=== PATIENT | female | born 1975 | race Caucasian/White ===

== ENCOUNTER 2016-10-22 23:32 | Inpatient (IN) | payer OTHER ==
--- NOTE | ~2016-10-22 | PN ---
Unit #: [id number] #: [id number] Patient: NAVEEN ASH [id number] [facility] [address] [place] [address] [id number] MR#: [id number] NAME: NAVEEN ASH. ROOM: 16 Age: 41 Sex: F Admission Date: 10/22/2016 : 1975 Attending Physician: Silvano Farrell M.D. Admitting Physician: Alberto Raya PROGRESS NOTES DATE 10/26/2016 DISCUSSION The patient looks significantly improved during today's interview. She is more future oriented and less disorganized in her thinking. She is expressing interest in either return to [facility] or participation in the transitions program. Dictated by... Silvano Farrell M.D. CB/leigh TD: 10/26/2016 16:36 JOB #: [id number] RACHEL PROGRESS NOTES X Silvano Farrell MD X PROGRESS NOTE
--- NOTE | ~2016-10-22 | CO ---
Unit #: [id number] #: [id number] Patient: YORDAN ASH [id number] [place] [address] [id number] MR#: [id number] NAME: YORDAN ASH. ROOM: 16 Age: 41 Sex: F Admission Date: 10/22/2016 : 1975 Attending Physician: Silvano Farrell M.D. Consultation Date: 10/23/2016 CONSULTATION REPORT SUBJECTIVE Yordan is a 41-year-old, who was noted to have a scabs along her forehead extending into the hairline at the time of admission. She was examined and this was described and treatment was outlined in her admission H and P. Please see H and P dated 10/23/2016. Dictated by... Racquel Nelson P.A.-C. for Alberto Ledesma/coco TD: 10/26/2016 02:48 JOB #: [id number] CONSULTATION REPORT X Racquel Nelson CONSULTATION REPORT
--- NOTE | ~2016-10-22 | DS ---
Unit #: [id number] #: [id number] Patient: NAVEEN ASH [id number] [facility] [address] [place] [address] [id number] MR#: [id number] NAME: NAVEEN ASH. ROOM: [facility] Age: 41 Sex: F Admission Date: 10/22/2016 : 1975 Discharge Date: 10/28/2016 Attending Physician: Silvano Farrell M.D. DISCHARGE SUMMARY JOB NOTE: VERIFY MRN NUMBER REASON FOR ADMISSION The patient is a 31-year-old chronically ill white female, admitted with recurrent psychosis after a period of medication noncompliance. HOSPITAL COURSE The patient was admitted to the [address] [place] [address] unit and placed on suicide precautions. She was restarted on previously prescribed medications and was provided with an injection of Invega Sustenna during her stay in the hospital. She showed rapid and significant improvement with re-initiation of medications, and by 10/28/2016 was in bright spirits. She was agreeable with plan for discharge with followup to take place through the auspices of the intensive outpatient program and community mental health resources. Discharge was ordered. FINAL DIAGNOSIS Schizoaffective disorder. DISPOSITION ON DISCHARGE The patient is discharged on the following medications; Zoloft 150 mg daily for depression, Neurontin 300 mg b.i.d. and 600 mg at h.s. for psychosis, Depakote 500 mg q.a.m. and 1000 mg at h.s. for mood stabilization, Invega Sustenna 234 mg q.4 weeks, Neosporin apply to scalp b.i.d. for infection, Vistaril 50 mg at bedtime p.r.n. insomnia. DISCHARGE INSTRUCTIONS No dietary or physical restrictions were placed upon the patient at the time of discharge. FOLLOWUP Followup will take place through the auspices of community mental health resources and the transitions intensive outpatient program provided by this facility. PROGNOSIS The patient's prognosis is considered fair. Dictated by... Silvano Farrell M.D. CB/terrelll Unit #: [id number] #: [id number] Patient: NAVEEN ASH TD: 10/29/2016 02:09 JOB #: [id number] DISCHARGE SUMMARY X Silvano Farrell MD DISCHARGE SUMMARY
--- NOTE | ~2016-10-22 | PN ---
Unit #: [id number] #: [id number] Patient: NAVEEN ASH [id number] [facility] [address] [place] [address] [id number] MR#: [id number] NAME: NAVEEN ASH. ROOM: 16 Age: 41 Sex: F Admission Date: 10/22/2016 : 1975 Attending Physician: Silvano Farrell M.D. Admitting Physician: Alberto Raya PROGRESS NOTES DATE 10/27/2016 DISCUSSION The patient seems to be sustaining improvement. She is pleasant and cooperative in her actions with this physician today and states that she plans to return to her apartment. She would be a good candidate for the transitions program upon discharge which should take place tomorrow. Dictated by... Silvano Farrell M.D. CB/caitlin TD: 10/27/2016 21:06 JOB #: [id number] RACHEL PROGRESS NOTES X Silvano Farrell MD PROGRESS NOTE
--- NOTE | ~2016-10-22 | PN ---
Unit #: [id number] #: [id number] Patient: NAVEEN ASH [id number] [facility] [address] [place] [address] [id number] MR#: [id number] NAME: NAVEEN ASH. ROOM: 16 Age: 41 Sex: F Admission Date: 10/22/2016 : 1975 Attending Physician: Silvano Farrell M.D. Admitting Physician: Alberto Raya PROGRESS NOTES DATE 10/25/2016 DISCUSSION The patient has now received her injection of Invega. She is seclusive to room with little participation within the therapeutic milieu. Staff reports no management issues. Dictated by... Silvano Farrell M.D. CB/leigh TD: 10/25/2016 18:13 JOB #: [id number] RACHEL PROGRESS NOTES X Silvano Farrell MD PROGRESS NOTE
--- NOTE | ~2016-10-22 | PN ---
Unit #: [id number] #: [id number] Patient: NAVEEN ASH [id number] [facility] [address] [place] [address] [id number] MR#: [id number] NAME: NAVEEN ASH. ROOM: 16 Age: 41 Sex: F Admission Date: 10/22/2016 : 1975 Attending Physician: Silvano Farrell M.D. Admitting Physician: Alberto Raya PROGRESS NOTES DATE 10/24/2016 DISCUSSION The patient is abed resting comfortably today. We have learned that she has not received an Invega Sustenna shots in July, and we will reinitiate treatment with this medication. Dictated by... Silvano Farrell M.D. CB/elana TD: 10/24/2016 14:56 JOB #: [id number] RACHEL PROGRESS NOTES X Silvano Farrell MD X PROGRESS NOTE
--- NOTE | ~2016-10-22 | HP ---
Unit #: [id number] #: [id number] Patient: YORDAN ASH [id number] [place] [address] [id number] MR#: [id number] NAME: YORDAN ASH. ROOM: [facility] Age: 41 Sex: F Admission Date: 10/22/2016 : 1975 Attending Physician: Silvano Farrell M.D. Admitting Physician: Silvano Farrell M.D. HISTORY AND PHYSICAL HISTORY OF PRESENT ILLNESS Yordan is a 41 year old admitted to [address] [place] [address] with psychotic behavior. She is a poor historian so her history is taken from her chart. PAST MEDICAL HISTORY 1. Obesity 2. COPD 3. GERD 4. Hyperlipidemia PAST SURGICAL HISTORY Nothing reported ALLERGIES Demerol, morphine, Lasix SOCIAL HISTORY Smokes one pack per day. Drinks alcohol on occasion and uses marijuana. FAMILY HISTORY Medically noncontributory. REVIEW OF SYSTEMS She does not answer any questions appropriately. There are no reports of nausea, vomiting or diarrhea. She has had no cough or increased temperature. She has had no complaints or indications of chest pain or short of breath. CURRENT MEDICATIONS 1. Invega 6 mg daily 2. Depakote 500 mg q.a.m., 1000 mg q.h.s. 3. Neurontin 300 mg b.i.d. 4. Zoloft 150 mg daily 5. Nicotine patch 7 mg daily 6. Milk of Magnesia p.r.n. 7. Maalox p.r.n. 8. Tylenol p.r.n. PHYSICAL EXAMINATION GENERAL: Alert, obese, very psychotic lady, in no apparent distress. VITAL SIGNS: Blood pressure 130/92, heart rate 100, respirations 16, Unit #: [id number] #: [id number] Patient: YORDAN ASH temperature 98.6. WEIGHT: 150 pounds. HEIGHT: 5'2". SKIN: Warm and dry. She has what appears to be scabs along her forehead extended into the hairline. There is no increased redness, swelling, heat or pus noted. HEENT: Normocephalic. TMs not viewed. Oral and nasal passages clear. Conjunctivae clear. Pupils equal, round and reactive to light and accommodation. Extraocular movements intact. NECK: Supple without lymphadenopathy or thyromegaly. HEART: Regular rate and rhythm without murmur. LUNGS: Clear. ABDOMEN: Soft, nontender. : Not done. EXTREMITIES: No evidence of cyanosis, clubbing or edema. Moves all extremities without focal deficit. NEUROLOGICAL: Unable to complete extended exam. She does move all extremities without focal deficit. Hand diesel mechanic helper is equal and gait is normal. IMPRESSION 1. Psychiatric admission. 2. Gastroesophageal reflux disease. 3. Chronic obstructive pulmonary disease. 4. Hyperlipidemia. 5. Obesity. 6. Rash/burn across her forehead at the hairline. This very possibly is a chemical burn from hair bleach that was applied five to seven weeks ago based on the amount of dark hair that has grown out. RECOMMENDATIONS PSYCHIATRIC: Per psychiatrist. MEDICAL: 1. I see no contraindications to participating in facility's activities. 2. Triple antibiotic ointment to the area on her forehead. Keep the area clean with soap and water. MEDICAL PROGNOSIS Good. MEDICAL CONDITION Stable. Dictated by... Terese ChowdhuryACarlie-Chintan. for Alberto Ledesma/caitlin TD: 10/24/2016 01:22 JOB #: [id number] Unit #: [id number] #: [id number] Patient: YORDAN ASH HISTORY AND PHYSICAL X Racquel Nelson HISTORY AND PHYSICAL
[2016-10-25 09:30] LABS: BASOPHIL# 0.1 X10e3 (0-0.3); BASOPHIL% 0.9 % (0-2.5); EOSINOPHIL# 0.2 X10e3 (0-0.7); HEMATOCRIT 47.5 % (35.0-45.0); HEMOGLOBIN 15.4 gm/dL (12.0-16.0); LYMPHOCYTE# 3.6 X10e3 (1.0-3.5); LYMPHOCYTE% 24.4 % (17.0-45.0); MEAN CELL VOLUME 88.8 FL (83-96); MEAN CORPUSCULAR HEMOGLOBIN 28.9 PG (28-34); MEAN CORPUSCULAR HGB CONC 32.5 g/dL (30-36); MEAN PLATELET VOLUME 7.6 FL (6.5-11.5); MONOCYTE# 1.3 X10e3 (0-1.0); MONOCYTE% 8.5 % (3.0-12.0); NEUTROPHIL# 9.7 X10e3 (1.5-7.1); NEUTROPHIL% 65.2 % (40-75); PLATELET COUNT 540 X10e3 (140-420); RED BLOOD COUNT 5.35 X10e (3.90-5.30); RED CELL DISTRIBUTION WIDTH 15.9 % (11.0-15.5); WHITE BLOOD COUNT 14.9 X10e3 (4.0-10.5)
[2016-10-25 09:38] LABS: DIFF IND NO
[2016-10-25 10:34] LABS: THYROID STIMULATING HORMONE 1.21 uIU/ml (0.34-5.60)
[2016-10-25 10:44] LABS: ALBUMIN SERUM 3.6 g/dL (3.5-5.0); ALKALINE PHOSPHATASE 67 U/L (32-92); ALT (SGPT) 17 U/L (10-40); AST (SGOT) 20 U/L (10-42); BILIRUBIN,TOTAL 0.5 mg/dL (0.2-2.0); BLOOD UREA NITROGEN 11 mg/dL (9-23); BUN/CREATININE RATIO 15.71; CALCIUM SERUM 9.3 mg/dL (8.4-10.2); CARBON DIOXIDE 27 mmol/L (22-31); CHLORIDE 100 mmol/L (100-111); CREATININE SERUM 0.7 mg/dL (0.6-1.4); FREE THYROXIN (T4) 0.79 ng/dL (0.58-1.64); GLOM FILT RATE Estimated ABOVE60 mL/min (>60); GLUCOSE FASTING 76 mg/dL (70-110); POTASSIUM 3.4 mmol/L (3.5-5.1); PROTEIN TOTAL SERUM 6.7 g/dL (6.0-8.3); SODIUM 137 mmol/L (135-145)
== END 2016-10-28 15:12 | disposition home or self-care (01) | DRG 885 ==
LOC: P2S 23:32 → P1S 10-23 16:56 → POF 10-28 14:24 → P1S 10-28 14:25
PROVIDERS: Specialist
DX: F25.9 Schizoaffective disorder, unspecified (principal); J44.9 Chronic obstructive pulmonary disease, unspecified; E66.9 Obesity, unspecified; K21.9 Gastro-esophageal reflux disease without esophagitis; E78.5 Hyperlipidemia, unspecified; F17.200 Nicotine dependence, unspecified, uncomplicated; Z88.5 Allergy status to narcotic agent; Z88.8 Allergy status to other drugs, medicaments and biological substances; R21 Rash and other nonspecific skin eruption
CPT/HCPCS: 80053; 80164; 82140; 84439; 84443; 84703; 85025